=== PATIENT | female | born 2005 | race Caucasian/White ===

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

== ENCOUNTER 2023-12-31 14:28 | Emergency (ER) | payer OTHER ==
[2023-12-31 14:54] VITALS: TEMP 98.6
--- NOTE | 2023-12-31 15:29 | ED ---
General Adult HPI - General Source: patient, RN notes reviewed Mode of arrival: ambulatory Limitations: no limitations - History of Present Illness MD Complaint: Ankle injury, left lower abdominal pain Onset/Timin -: days(s) Location: pelvis, right, lower extremity Radiation: non-radiation Severity scale (1-10): 5 Consistency: constant <Sarbjit Camp - Last Filed: 12/31/23 15:26> - General Source: patient, RN notes reviewed, old records reviewed Mode of arrival: ambulatory Limitations: no limitations - History of Present Illness -: days(s) Location: pelvis, right, lower extremity Radiation: non-radiation Improves with: none Worsens with: none Associated Symptoms: denies other symptoms Treatments Prior to Arrival: none <Vick Garner - Last Filed: 01/02/24 19:51> - General Chief complaint: Recheck/Abnormal Lab/Rx Stated complaint: ankle injury,lower abd pain Time Seen by Provider: 12/31/23 15:08 - History of Present Illness Initial comments: Quick note: This is a 18-year-old female presenting with right ankle pain following a slip of fall x 5 days ago. Patient states she feels "popping and pressure" when walking, noting color changes in her ankle. Patient states she was walking immediately after the injury. Patient also mentions left pelvic/ovarian pain (5 out of 10) x 1 week. Patient endorses history of ovarian cyst. Patient is also requesting a test today. Patient denies fever, chills, paresthesia, N/V/D, urinary symptoms, abnormal vaginal bleeding. (Sarbjit Camp) This is a 18-year-old female to the ER after a fall with possibility that patient believes she may have with pelvic pain possible ankle pain left ankle pain (Vick Garner) - Related Data Previous Rx's Medication Instructions Recorded metFORMIN HCL [Glucophage] 500 mg PO BID-W/MEALS tab 09/20/22 FLUoxetine HCL [PROzac] 30 mg PO DAILY 15 Days #45 cap 11/02/22 [place] Carbonate 300 mg PO DAILY 30 Days #30 cap 11/02/22 [place] Carbonate 600 mg PO HS 30 Days #60 cap 11/02/22 QUEtiapine [SEROquel] 100 mg PO HS 30 Days #30 tab 11/02/22 Allergies Allergy/AdvReac Type Severity Reaction Status Date / Time arnold Allergy Anaphylaxis Verified 12/31/23 14:54 gluten Allergy Rash/Hives Verified 12/31/23 14:54 hazelnut Allergy Anaphylaxis Verified 12/31/23 14:54 shellfish derived [Shellfish] Allergy Anaphylaxis Verified 12/31/23 14:54 Review of Systems ROS Other: All systems not noted in ROS Statement are negative. <Sarbjit Camp - Last Filed: 12/31/23 15:26> ROS Other: All systems not noted in ROS Statement are negative. <Vick Garner - Last Filed: 01/02/24 19:51> ROS Statement: Those systems with pertinent positive or pertinent negative responses have been documented in the HPI. Past Medical History Past Medical History: Diabetes Mellitus, GERD/Reflux Additional Past Medical History / Comment(s): speculated gastroparesis, enlarged abdominal lymph nodes, thoracic compression. RIVAS. anemia. clotting disorder. connective tissue disorder - autoimmune. function abdominal pain. abdominal migraines. IBS. spleen enlargement. liver enlargement. History of Any Multi-Drug Resistant Organisms: None Reported Past Surgical History: Adenoidectomy, Tonsillectomy Additional Past Surgical History / Comment(s): gastric repair at . multiple scopes. Past Anesthesia/Blood Transfusion Reactions: No Reported Reaction Past Psychological History: ADD/ADHD, Anxiety, Bipolar, Depression Smoking Status: Never smoker Past Alcohol Use History: None Reported Past Drug Use History: Marijuana - Past Family History Mother Family Medical History: Cancer, Hypertension Additional Family Medical History / Comment(s): Hx ovarian cancer Father History Unknown: Yes Family Medical History: Diabetes Mellitus <Sarbjit Camp - Last Filed: 12/31/23 15:26> General Exam Limitations: no limitations <Sarbjit Camp - Last Filed: 12/31/23 15:26> - General Exam Comments Initial Comments: Visual Physical Exam Vital signs reviewed General: Well-appearing, nontoxic, no acute distress. Head: Normocephalic, atraumatic Eyes: PERRLA, EOMI ENT: Airway patent Chest: Nonlabored breathing Skin: No visual rash, normal skin tone Neuro: Alert and oriented 3 Musculoskeletal: No gross abnormalities (Sarbjit Camp) Course <Vick Garner - Last Filed: 01/02/24 19:51> Vital Signs 10/28/24 10/28/24 14:49 19:40 Temperature 98.6 F Pulse Rate 101 H 84 Respiratory 18 16 Rate Blood Pressure 131/81 132/84 O2 Sat by Pulse 98 99 Oximetry - Reevaluation(s) Reevaluation #1: 12/31/23 20:08 Medical records reviewed (Vick Garner) Reevaluation #2: 12/31/23 20:08 Patient symptoms unchanged (Vick Garner) Reevaluation #3: 12/31/23 20:08 Patient informed of results questions answered (Vick Garner) Reevaluation #4: Was pt. sent in by a medical professional or institution (ELEN Sage, FAMILY NURSE PRACTITIONER, urgent care, hospital, or group home...) When possible be specific @ -no Did you speak to anyone other than the patient for history (EMS, parent, family, police, friend...)? What history was obtained from this source @ -no Did you review nursing and triage notes (agree or disagree)? Why? @ -agree Are old charts reviewed (outside hosp., previous admission, EMS record, old EKG, old radiological studies, urgent care reports/EKG's, group home records)? Report findings @ -yes Differential Diagnosis (chest pain, altered mental status, abdominal pain women, abdominal pain men, vaginal bleeding, weakness, fever, dyspnea, syncope, headache, dizziness, GI bleed, back pain, seizure, CVA, palpatations, mental health, musculoskeletal)? @ -prior EKG interpreted by me (3pts min.). @ -no X-rays interpreted by me (1pt min.). @ -yes negative for acute disease CT interpreted by me (1pt min.). @ -no U/S interpreted by me (1pt. min.). @ -yes negative for acute disease What testing was considered but not performed or refused? (CT, X-rays, U/S, labs)? Why? @ -none What meds were considered but not given or refused? Why? @ -none Did you discuss the management of the patient with other professionals (professionals i.e. ELEN Sage, FAMILY NURSE PRACTITIONER, lab, RT, psych nurse, social work case manager, automatic casting machine operator, teacher, staff combat information center officer, clinical case manager)? Give summary @ -no Was smoking cessation discussed for >3mins.? @ -no Was critical care preformed (if so, how long)? @ -no Were there social determinants of health that impacted care today? How? (Homelessness, low income, unemployed, alcoholism, drug addiction, transportation, low edu. Level, literacy, decrease access to med. care, halfway, rehab)? @ -none Was there de-escalation of care discussed even if they declined (Discuss DNR or withdrawal of care, Hospice)? DNR status @ -no What co-morbidities impacted this encounter? (DM, HTN, Smoking, COPD, CAD, Can cer, CVA, ARF, Chemo, Hep., AIDS, mental health diagnosis, sleep apnea, morbid obesity)? @ -none Was patient admitted / discharged? Hospital course, mention meds given and route, prescriptions, significant lab abnormalities, going to OR and other pertinent info. @ - 18 female to ER for evaluation of fall with ankle pain. Patient has ankle sprain can be discharged home Discharge Undiagnosed new problem with uncertain prognosis? @ -no Drug Therapy requiring intensive monitoring for toxicity (Heparin, Nitro, Insulin, Cardizem)? @ -no Were any procedures done? @ -no Diagnosis/symptom? @ -Ankle sprain Acute, or Chronic, or Acute on Chronic? @ -Acute Uncomplicated (without systemic symptoms) or Complicated (systemic symptoms)? @ -Complicated Side effects of treatment? @ -no Exacerbation, Progression, or Severe Exacerbation? @ -exacerbation Poses a threat to life or bodily function? How? (Chest pain, USA, DC, pneumonia, PE, COPD, DKA, ARF, appy, cholecystitis, CVA, Diverticulitis, Homicidal, Suicidal, threat to staff... and all critical care pts) @ -no (Vick Garner) Medical Decision Making <Sarbjit Camp - Last Filed: 12/31/23 15:26> - Radiology Data Radiology results: report reviewed (Ultrasound pelvis negative for acute disease, x-ray ankle negative for acute disease), image reviewed <Vick Garner - Last Filed: 01/02/24 19:51> - Medical Decision Making I completed the quick note portion of this chart signed BRODIE Rose (Sarbjit Camp) 18 female to ER for evaluation of fall with ankle pain. Patient has ankle sprain can be discharged home (Vick Garner) - Lab Data Lab Results 12/31/23 Range/Units 15:14 Urine HCG, Qual Not Detected (Not Detectd) Disposition <Sarbjit Camp - Last Filed: 12/31/23 15:26> Is patient prescribed a controlled substance at d/c from ED?: No Time of Disposition: 18:40 <Vick Garner - Last Filed: 01/02/24 19:51> Clinical Impression: Left ankle sprain Disposition: HOME SELF-CARE Condition: Good Instructions (If sedation given, give patient instructions): Ankle Sprain (ED) Referrals: Eliel Damon MD [Primary Care Provider] - 1-2 days
--- NOTE | 2023-12-31 17:04 | XR ---
EXAMINATION TYPE: XR ankle complete RT DATE OF EXAM: 12/31/2023 4:41 PM COMPARISON: None CLINICAL INDICATION: Female, 18 years old with history of ankle injury; TECHNIQUE: XR ankle complete RT; ankle is imaged in frontal, lateral and oblique projections. FINDINGS: There is no evidence of acute osseous pathology. No evidence of subluxation or dislocation. Kager's fat pad is intact. Mild soft tissue swelling around the ankle. No radiopaque foreign bodies are ident ified. IMPRESSION: 1. No evidence of acute fracture. 2. Subcutaneous swelling around the ankle likely secondary to underlying soft tissue injury. [facility], , 12/31/2023 5:01 PM
--- NOTE | 2023-12-31 18:14 | US ---
EXAMINATION TYPE: US transvaginal DATE OF EXAM: 12/31/2023 COMPARISON: NONE CLINICAL INDICATION: Female, 18 years old with history of Left ovarian pain, history of ovarian cyst; Patient states left pelvic pain/ pressure. Hx of left ovarian tumor removal. TECHNIQUE: Transvaginal (TV). Transabdominal grayscale, color Doppler and spectral Doppler sonograp hic images of the pelvis were acquired. Transvaginal sonographic images were medically necessary to better assess the following anatomy: Ovaries FINDINGS: Date of LMP: 12/20/2023 EXAM MEASUREMENTS: Uterus: 8.2 x 3.4 x 3.7 cm Endometrial Stripe: 1.1 cm Right Ovary: 3.2 x 3.6 x 3.0 cm Left Ovary: Unable to visualize cm Limited due to body habitus 1. Uterus: Anteverted wnl 2. Endometrium: wnl 3. Right Ovary: wnl 4. Left Ovary: There is a 4.1 x 4.5 x 5.7cm hypoechoic, heterogeneous area in the left adnexa. ? isael ology Spectral, color and waveform doppler imaging shows good arterial and venous flow within the right o vary; there is no evidence for ovarian torsion. 5. Bilateral Adnexa: There is a 4.1 x 4.5 x 5.7cm hypoechoic, heterogeneous area in the left adnexa 6. Posterior cul-de-sac: Small amount of free fluid IMPRESSION: 1. Indeterminate left adnexal lesion possibly representing the patient's left ovary, further evaluat ion with MRI pelvis recommended. Otherwise left ovary is not visualized. 2. Appropriate arterial and venous spectral waveforms to the ovaries. 3. Endometrium within normal limits for thickness. [facility], Workstation: [id number], 12/31/2023 6:12 PM
[2023-12-31] MEDS ORDERED: cefTRIAXone 250 MG VIAL IM STA (19:33)
[2023-12-31] MEDS ORDERED: metroNIDAZOLE 500 MG TAB PO STA (19:33)
[2023-12-31] MEDS ORDERED: AZITHROMYCIN 500 MG TAB PO STA (19:33)
[2023-12-31 19:41] VITALS: BP 132/84; PULSE 84; RESP 16
== END 2023-12-31 19:58 | disposition home or self-care (01) ==
LOC: EC 14:28
DX: S93.402A Sprain of unspecified ligament of left ankle, initial encounter (principal); Z91.018 Allergy to other foods; Z88.8 Allergy status to other drugs, medicaments and biological substances; Z91.013 Allergy to seafood; X58.XXXA Exposure to other specified factors, initial encounter
CPT/HCPCS: 76830; 81025; 93976; 99283